=== PATIENT | male | born 1970 | race Caucasian/White ===

== ENCOUNTER 2018-10-02 22:48 | Emergency (ER) | payer SELFPAY ==
[~2018-10-02] VITALS: Ht 185.4 cm; Wt 100.7 kg
[2018-10-02 23:06] VITALS: Ht 185.4 cm; Wt 100.7 kg
--- NOTE | 2018-10-02 23:19 | ERD ---
ER Documentation Chief Complaint Chief Complaint L knee pain/swelling HPI The patient is a 48-year-old male, presenting to the ER because of acute left knee pain and swelling for the last day after he has exerted himself. However the pain is getting better compared to the day he had surgery. He had left knee arthroplasty about a month ago. He denies any trauma, denies fever, chills, neck pain, chest pain, dyspnea, abdominal pain, vomiting, dysuria. He does not smoke, drinks socially, denies illicit drug. He think that it is due to his anxiety Medical history: Panic disorder Past surgical history: Left knee arthroplasty, right knee arthroscopy, left knee arthroscopy ROS All systems reviewed and are negative except as per history of present illness. Medications Home Meds No Active Prescriptions or Reported Meds Allergies Allergies: Coded Allergies: No Known Allergy (Unverified , 10/02/18) Physical Exam Vitals Vital Signs Date Temp Pulse Resp B/P (MAP) Pulse Ox O2 O2 Flow FiO2 Time Delivery Rate 10/03/18 110 20 151/83 98 Room Air 02:13 (105) 10/02/18 100.1 123 30 149/79 95 Room Air 23:35 (102) 10/02/18 100.8 130 20 149/84 94 23:06 (105) Physical Exam Const: No acute distress. Head: Atraumatic. Eyes: Normal Conjunctiva. ENT: Normal External Ears, Nose and Mouth. Neck: Full range of motion. No meningismus. Resp: Clear to auscultation bilaterally. Cardio: Regular tachy. Abd: Soft, non distended, normal bowel sounds, non tender. Skin: No petechiae or rashes. Back: No midline or flank tenderness. Ext: No cyanosis, or edema. Left knee with minimal edema, not warm to touch, no calf tenderness, midline incision is healing well Neur: Awake and alert. No focal deficit Psych: Normal Mood and Affect. Result Diagram: 10/02/18 4857 10/02/18 4047 Results 24 hrs Laboratory Tests Test 10/02/18 00:00 10/02/18 23:32 10/02/18 23:44 10/03/18 00:20 Urine Color YELLOW Urine Clarity CLOUDY Urine pH 5.0 Urine Specific 1.028 [place] Urine Ketones 1+ mg/dL Urine Nitrite NEGATIVE mg/dL Urine Bilirubin NEGATIVE mg/dL Urine NEGATIVE mg/dL Urobilinogen Urine Leukocyte NEGATIVE Brandyn/ul Esterase Urine Microscopic 1 /HPF RBC Urine Microscopic 2 /HPF WBC Urine Amorphous FEW /HPF Crystals Urine Mucus MODERATE /HPF Urine Hemoglobin NEGATIVE mg/dL Urine Glucose NEGATIVE mg/dL Urine Total 1+ mg/dl Protein POC Venous 1.2 mmol/L Lactate White Blood Count 10.7 10^3/ul Red Blood Count 4.40 10^6/ul Hemoglobin 13.2 g/dl Hematocrit 39.5 % Mean Corpuscular 89.8 fl Volume Mean Corpuscular 30.0 pg Hemoglobin Mean Corpuscular 33.4 g/dl Hemoglobin Concen t Red Cell 12.0 % Distribution Width Platelet Count 298 10^3/UL Mean Platelet 9.7 fl Volume Immature 0.500 % Granulocytes % Neutrophils % 78.3 % Lymphocytes % 12.8 % Monocytes % 7.1 % Eosinophils % 0.9 % Basophils % 0.4 % Nucleated Red 0.0 /100WBC Blood Cells % Immature 0.050 10^3/ul Granulocytes # Neutrophils # 8.4 10^3/ul Lymphocytes # 1.4 10^3/ul Monocytes # 0.8 10^3/ul Eosinophils # 0.1 10^3/ul Basophils # 0.0 10^3/ul Nucleated Red 0.0 10^3/ul Blood Cells # Prothrombin Time 13.6 Sec Prothrombin Time 1.1 Ratio INR International 1.03 Normalized Ratio Activated 30.3 Sec Partial Thrombopl ast Time Sodium Level 140 mmol/L Potassium Level 3.4 mmol/L Chloride Level 101 mmol/L Carbon Dioxide 24 mmol/L Level Anion Gap 15 Blood Urea 17 mg/dl Nitrogen Creatinine 0.96 mg/dl Est Glomerular > 60 mL/min Filtrat Rate mL/min Glucose Level 97 mg/dl Calcium Level 9.6 mg/dl Total Bilirubin 1.3 mg/dl Direct Bilirubin 0.00 mg/dl Indirect 1.3 mg/dl Bilirubin Aspartate Amino 61 IU/L Transf (AST/SGOT) Alanine 39 IU/L Aminotransferase (ALT/SGPT) Alkaline 86 IU/L Phosphatase Troponin I < 0.012 ng/ml Total Protein 7.9 g/dl Albumin 4.8 g/dl Globulin 3.10 g/dl Albumin/Globulin 1.54 Ratio Bedside Urine pH 5.0 (LAB) Bedside Urine 2+ Protein (LAB) Bedside Urine Negative Glucose (UA) Bedside Urine 2+ Ketones (LAB) Bedside Urine Negative Blood Bedside Urine Negative Nitrite (LAB) Bedside Urine Negative Leukocyte Esteras e (L Test 10/03/18 01:03 Lactic Acid Level 0.9 mmol/L Current Medications Medications Dose Sig/Nick Start Time Status Last (Trade) Ordered Route PRN Stop Time Admin Dose Reason Admin Sodium 3,020 ml BOLUS OVER 2 10/02/18 Cancel Chloride HOURS STAT 23:21 (NS) IV* 10/02/18 23:22 650 mg ONCE ONCE 10/02/18 DC Acetaminophen PO 23:30 (Tylenol 10/02/18 23:40 Tab) Ketorolac 30 mg ONCE STAT 10/02/18 DC 10/02/18 Tromethamine IV 23:37 23:54 (Toradol) 10/02/18 23:40 Lorazepam 0.5 mg ONCE ONCE 10/03/18 DC 10/02/18 (Ativan) PO 00:00 23:53 10/03/18 00:01 Potassium 20 meq ONCE STAT 10/03/18 DC 10/03/18 Chloride PO 02:31 02:38 (Klor-Con 20) 10/03/18 02:32 Procedures/[place] [id number] Radiology Main Line: [phone] DIAGNOSTIC IMAGING REPORT Patient: NAEEM REYES : 1970 Age: 48 Sex: M MR #: [id number] DOS: 10/02/18 2319 Ordering MD: RASHEL MURPHY MD Location: E/R Room/Bed: PROCEDURE: Portable chest x-ray. CLINICAL INDICATION: 48 years of age, male. Possible sepsis TECHNIQUE: Portable AP view of the chest. COMPARISON: None available. FINDINGS: Medical devices: None. Mediastinum: Cardiomediastinal contours are normal. Lungs: Lungs are clear. Pleura: Negative for pleural effusion or pneumothorax. Bones: No acute bony abnormality. Additional comment: None. IMPRESSION: Negative for evidence of an acute chest process. RPTAT: HCTS Physician Mark Date Time Electronically viewed and signed by Kenn Rahman Physician on 10/03/2018 02:03 CS/ CC: RASHEL MURPHY MD [id number] EKG: Read by emergency physician Rate/Rhythm: Sinus tachycardia 119 beats/min QRS, ST, T-waves: No ST elevation, no T inversion Impression: Abnormal EKG MEDICAL MAKING DECISION: The patient he is a 48-year-old male, presenting with acute postoperative pain, acute hypokalemia, acute anxiety. He was treated with Toradol and 30 mg IV for pain, Tylenol 650 mg p.o. for fever and Ativan 0.5 mg p.o. for acute anxiety and potassium chloride 40 mEq p.o. for acute hypokalemia with good response. His vital signs improved and is stable for o/p f/u The differential diagnoses considered include but are not limited to anxiety attack, panic attack, septic joint, PE, pneumonia, cystitis Departure Diagnosis: Primary Impression: Postoperative pain Additional Impressions: Hypokalemia Anemia Abnormal LFTs Condition: Good Comments The patient's blood pressure was elevated (>120/80) but appears stable without evidence of hypertension emergency or urgency. The patient was counseled about the risks of hypertension and urged to pursue outpatient monitoring and therapy within a week with their primary care physician. I discussed the findings with the patient. I advised the patient to follow-up with his orthopedist in about 1-2 days, sooner if needed and return if any concern. Disclaimer: Inadvertent spelling and grammatical errors are likely due to EHR /dictation software use and do not reflect on the overall quality of patient care. Also, please note that the electronic time recorded on this note does not necessarily reflect the actual time of the patient encounter. RASHEL MURPHY MD October 02, 2018 23:19
[2018-10-02] MEDS ORDERED: SODIUM CHLORIDE 0.9% 1L BAG IV* STA (23:21)
[2018-10-02] MEDS ORDERED: ACETAMINOPHEN 325 MG TAB PO ONE (23:30)
[2018-10-02] MEDS ORDERED: KETOROLAC 30 MG INJ IV STA (23:37)
[2018-10-03] MEDS ORDERED: LORAZEPAM 0.5 MG TAB PO ONE
[2018-10-03 02:13] VITALS: BP 151/83; PULSE 110; RESP 20
[2018-10-03] MEDS ORDERED: POTASSIUM CHLORIDE (SR) 20 MEQ TAB PO STA (02:31)
== END 2018-10-03 02:40 | disposition home or self-care (01) ==
LOC: E/R 22:48
DX: G89.18 Other acute postprocedural pain (principal); E87.6 Hypokalemia; D64.9 Anemia, unspecified; R94.5 Abnormal results of liver function studies
CPT/HCPCS: 71045; 80053; 81001; 81003; 83605; 84484; 85025; 85610; 85730; 87040; 87086; 93005; J1885; 36415; 96374; J7030